=== PATIENT | male | born 2000 | race Hispanic/Latino ===

== ENCOUNTER 2019-09-06 19:32 | Emergency (ER) | payer MEDICAID, OTHER | END 2019-09-06 20:06 | disposition left against medical advice (07) | LOC: EDH 19:32 | DX: S39.82XA Other specified injuries of lower back, initial encounter (principal); R07.81 Pleurodynia; Z72.0 Tobacco use; W11.XXXA Fall on and from ladder, initial encounter; Y93.89 Activity, other specified; Y92.89 Other specified places as the place of occurrence of the external cause; Y99.8 Other external cause status | CPT/HCPCS: 99281 ==